=== PATIENT | female | born 1950 | race Two or more races ===

== ENCOUNTER 2019-02-15 11:24 | Emergency (ER) | payer SELFPAY ==
[~2019-02-15] VITALS: Ht 152.4 cm; Wt 72.7 kg
[2019-02-15 11:25] VITALS: BP 149/96
== END 2019-02-15 12:00 | disposition home or self-care (01) ==
LOC: EMS 11:24
DX: S01.111D Laceration without foreign body of right eyelid and periocular area, subsequent encounter (principal); X58.XXXD Exposure to other specified factors, subsequent encounter